=== PATIENT | female | born 1995 | race African-American/Black ===

== ENCOUNTER 2023-05-07 13:28 | Emergency (ER) | payer OTHER ==
[2023-05-07] MEDS ORDERED: SODIUM CHLORIDE 1,000 ML IV STA (13:49)
[2023-05-07 13:59] VITALS: BP 121/75; PULSE 86; RESP 18; TEMP 97.8; BMI 40.4
[2023-05-07 14:03] LABS: HCG,QUALITATIVE URINE Negative
[2023-05-07 14:13] LABS: INR 1.1 (0.83-1.09); PROTHROMBIN TIME (PATIENT) 12.7 SEC (9.7-13.0)
[2023-05-07 14:21] LABS: HEMATOCRIT 38.3 % (32.4-45.2); MCH 20.7 pg (25.7-33.7); MCHC 31.4 g/dl (32.0-36.0); MEAN PLT VOLUME 10.5 fl (7.5-11.1); PLATELET COUNT 233.9 10^3/uL (134-434); RBC 5.81 10^6/uL (3.60-5.2); WHITE BLOOD COUNT 5.3 10^3/uL (4.0-10.8)
[2023-05-07 14:29] LABS: PLATELET ESTIMATE a
[2023-05-07 14:31] LABS: ALBUMIN 4.5 g/dl (3.4-5.0); BILIRUBIN,TOTAL 0.3 mg/dl (0.2-1); CALCIUM 9.6 mg/dl (8.5-10.1); CREATININE 0.6 mg/dl (0.6-1.3); POTASSIUM 4.2 mmol/L (3.5-5.1); TOT PROT 7.5 g/dl (6.4-8.2)
[2023-05-07] MEDS ORDERED: ACETAMINOPHEN 1000 MG/100 ML BAG IVPB ONE (14:48)
[2023-05-07] MEDS ORDERED: ACETAMINOPHEN INJECTION 100 ML IVPB ONE (14:50)
== END 2023-05-07 16:00 | disposition home or self-care (01) ==
LOC: FER 13:28
PROC: 3E033NZ Introduction of Analgesics, Hypnotics, Sedatives into Peripheral Vein, Percutaneous Approach (ICD-10-PCS; principal; 2023-05-07)
PROC: 3E0337Z Introduction of Electrolytic and Water Balance Substance into Peripheral Vein, Percutaneous Approach (ICD-10-PCS; 2023-05-07)
DX: R11.2 Nausea with vomiting, unspecified (principal); R19.7 Diarrhea, unspecified; R10.13 Epigastric pain; R10.11 Right upper quadrant pain; M54.9 Dorsalgia, unspecified; Z20.822 Contact with and (suspected) exposure to COVID-19
CPT/HCPCS: 0241U-QW; 36415; 76705-TC; 80053; 81003; 81015; 83690; 84703; 85027; 85610; 99284-25

== ENCOUNTER 2024-09-05 19:05 | Emergency (ER) | payer OTHER ==
[2024-09-05 19:21] VITALS: BP 128/84; PULSE 97; RESP 18; TEMP 98.2; BMI 47.9
[2024-09-05] MEDS ORDERED: KETOROLAC TROMETHAMINE 30 MG/1 ML VIAL ONE (20:15)
[2024-09-05] MEDS ORDERED: ONDANSETRON 4 MG/2 ML VIAL ONE (20:15)
[2024-09-05] MEDS ORDERED: INSULIN REGULAR HUMAN 100 UNITS/ML *VIAL ONE (20:16)
[2024-09-05] MEDS ORDERED: PANTOPRAZOLE SODIUM 40 MG VIAL ONE (20:16)
[2024-09-05] MEDS: PANTOPRAZOLE SODIUM 40 MG VIAL IVPUSH ONE (20:33)
[2024-09-05] MEDS: ONDANSETRON 4 MG/2 ML VIAL IVPB ONE (20:33)
[2024-09-05] MEDS: INSULIN REGULAR HUMAN 100 UNITS/ML *VIAL IVPUSH ONE (20:33)
[2024-09-05] MEDS: KETOROLAC TROMETHAMINE 30 MG/1 ML VIAL IVPUSH ONE (20:33)
[2024-09-05] MEDS: SODIUM CHLORIDE 1,000 ML IV ONE (20:33)
[2024-09-05 20:46] LABS: ABSOLUTE IMMATURE GRANULOCYTES 0.03 x10^3/uL (0.0-0.031); BASOPHILS # 0.04 x10^3/uL (0.01-0.08); EOSINOPHIL % 2.3 % (0.7-5.8); EOSINOPHILS # 0.15 x10^3/uL (0.04-0.36); HEMATOCRIT 42.3 % (34.1-44.9); MCHC 30.7 g/dl (32.2-35.5); MEAN CELL VOLUME 68.1 fl (79.4-94.8); MONOCYTE # 0.52 x10^3/uL (0.24-0.86); MONOCYTE % 7.9 % (4.7-12.5); PLATELET COUNT 220 x10^3/uL (182-369)
[2024-09-05 21:03] LABS: EPITHELIAL CELLS 0-5 /hpf
[2024-09-05 21:28] LABS: VENOUS BASE EXCESS -0.9 mmol/L (-2-2); VENOUS O2 SATURATION 93.3 % (70-80); VENOUS PCO2 43.1 mmHg (38-52); VENOUS PH 7.372 (7.310-7.410)
[2024-09-05 21:41] LABS: BILIRUBIN,TOTAL 0.4 mg/dl (0.2-1); CALCIUM 9.1 mg/dl (8.5-10.1); CREATININE 0.6 mg/dl (0.6-1.3); MAGNESIUM 1.6 mg/dL (1.8-2.4); POTASSIUM 4.9 mmol/L (3.5-5.1); TOT PROT 7.1 g/dl (6.4-8.2)
[2024-09-05 22:29] LABS: HCV DIAGNOSTIC IN-HOUSE W/RFLX NON-REACTIVE (NONREACTIVE); HIV INTERPRETATION NEGATIVE (NEGATIVE)
== END 2024-09-05 22:03 | disposition home or self-care (01) ==
LOC: FER 19:05
PROC: 3E033VG Introduction of Insulin into Peripheral Vein, Percutaneous Approach (ICD-10-PCS; principal; 2024-09-05)
PROC: 3E0333Z Introduction of Anti-inflammatory into Peripheral Vein, Percutaneous Approach (ICD-10-PCS; 2024-09-05)
PROC: 3E033GC Introduction of Other Therapeutic Substance into Peripheral Vein, Percutaneous Approach (ICD-10-PCS; 2024-09-05)
PROC: 3E033GC Introduction of Other Therapeutic Substance into Peripheral Vein, Percutaneous Approach (ICD-10-PCS; 2024-09-05)
PROC: 3E0337Z Introduction of Electrolytic and Water Balance Substance into Peripheral Vein, Percutaneous Approach (ICD-10-PCS; 2024-09-05)
DX: E11.65 Type 2 diabetes mellitus with hyperglycemia (principal); Z79.84 Long term (current) use of oral hypoglycemic drugs; R11.2 Nausea with vomiting, unspecified; R10.11 Right upper quadrant pain; R10.13 Epigastric pain
CPT/HCPCS: 36415; 76705-TC; 80053; 81003; 81015; 82803; 82962; 83605; 83735; 85025; 86803; 87086; 87389; 93005; 99285-25